=== PATIENT | female | born 1940 | race Caucasian/White ===

== ENCOUNTER 2018-09-05 05:55 | Observation (INO) | payer OTHER, BC ==
--- NOTE | 2018-08-29 12:14 | RAD REPORT ---
EXAM DESCRIPTION: RAD - Chest Pa And Lat (2 Views) - 08/29/2018 12:04 pm CLINICAL HISTORY: Preop chest, pending shoulder surgery COMPARISON: November 2015 TECHNIQUE: PA and lateral views of the chest were obtained. 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 This is relatively mild and non progressive from 201 6. No superimposed failure, infiltrate or mass. Heart size is normal and central vasculature is wit hin normal limits. No pleural effusion or pneumothorax seen. No acute bony finding noted. No aorti c abnormality. IMPRESSION: No acute cardiopulmonary process. Mild interstitial fibrotic pattern is stable from 201 6.
[2018-08-29 12:21] LABS: Absolute Lymphocytes (CBC) 2.1 K/uL (0.7-4.9); Absolute Monocytes 0.9 K/uL (0.1-1.3); Absolute Neutrophil 7.5 K/uL (1.8-8.0); Basophils % 0.7 % (0-1.3); Eosinophils % 3.6 % (0-4.4); Hematocrit 38.3 % (36.0-45.0); Lymphocytes % 18.8 % (15.3-44.8); MCH 28.8 pg (27.0-35.0); MCV 85.7 fL (80-100); Monocytes % 8.2 % (3.3-12.3); RBC Red Blood Cell Count 4.47 M/uL (3.86-4.86)
[2018-08-29 12:27] LABS: Protime INR 1.01
[2018-08-29 13:30] LABS: Urine Appearance TURBID; Urine Bilirubin NEGATIVE (NEG); Urine Blood 2+ (NEG); Urine Color YELLOW; Urine Glucose NEGATIVE (NEG); Urine Protein TRACE (NEG); Urine Specific Gravity 1.015 (1.005-1.030); Urine Urobilinogen 0.2 mg/dL (0.2-1.0); Urine pH 5.5 (5.0-7.0)
[2018-08-29 13:36] LABS: Urine Microscopic Reflex ORDER UMIC
[2018-08-29 13:43] LABS: Urine Bacteria >50 /HPF (<20)
[2018-08-29 13:44] LABS: Urine Culture Reflex Order REFLEXED
--- NOTE | 2018-08-29 14:29 | EKG ---
Test Date: 2018-08-29 Test Time: 12:11:05 Claims Auditor: KEHINDE MEASUREMENT RESULTS: Intervals: Rate: 71 HI: 162 QRSD: 130 QT: 412 QTc: 447 Emmons: P: 71 HI: 162 QRS: -41 T: 89 INTERPRETIVE STATEMENTS: Normal sinus rhythm Possible Left atrial enlargement Left axis deviation Left bundle branch block Abnormal ECG Compared to ECG 11/27/2015 10:02:52 No significant changes Electronically Signed On 08-29-18 14:29:10 CDT by Troy Funes
[2018-09-05] MEDS ORDERED: CLINDAMYCIN INJ 600 MG in NA CHLORIDE 0.9% 50 ML IV ONE (06:00)
--- OUTSIDE RECORDS SUMMARY | 2018-09-05 06:02 | XMS REPORT ---
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
--- OUTSIDE RECORDS SUMMARY | 2018-09-05 06:02 | XMS REPORT ---
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 Carole-D 24 [facility] 02135887799 180mg By mouth Active 1 Hour Daily Results No Known Results Summary Purpose eClinicalWorks Submission
--- OUTSIDE RECORDS SUMMARY | 2018-09-05 06:02 | XMS REPORT ---
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
--- OUTSIDE RECORDS SUMMARY | 2018-09-05 06:02 | XMS REPORT ---
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 Assessment Acute pain of right shoulder M25.511 Active Medications Medication Code Code Instructions Start End Status Dosage System Date Date immodium [facility] 54837139948 Oral Active 1 tab Tramadol HCl [facility] 07997858869 50 MG Orally Jul 30Jul Active 1 tablet as every 6 hrs 2017 27, needed 2018 Ellura [facility] 92745760831 200 MG Orally Active as directed Amlodipine [facility] 24655153300 5 MG Oral Active TAKE ONE Besylate (1) TABLET(S) BY MOUTH ONCE A DAY. Carole-D 24 [place] 93247533055 180mg By mouth Active 1 Hour Daily Results No Known Results Summary Purpose eClinicalWorks Submission
--- OUTSIDE RECORDS SUMMARY | 2018-09-05 06:02 | XMS REPORT ---
[...] Medications Results No Known Results Summary Purpose [employer] Submission
--- OUTSIDE RECORDS SUMMARY | 2018-09-05 06:02 | XMS REPORT ---
[...] Medications Results No Known Results Summary Purpose [employer] Submission
[2018-09-05] MEDS ORDERED: Ringers Lactate 1,000 ML IV ONE ×3 (06:21→11:18)
[2018-09-05] MEDS ORDERED: SCOPOLAMINE HYDROBROMIDE PATCH TD ONE (06:47)
[2018-09-05] MEDS ORDERED: ROPLVACAINE HCL 20 ML ONE (07:00)
[2018-09-05] MEDS ORDERED: DEXAMETHASONE 4 MG/ML VIAL ONE (07:00)
[2018-09-05] MEDS ORDERED: FENTANYL CITR 100 MCG/2 ML ONE (07:00)
[2018-09-05] MEDS ORDERED: MIDAZOLAM HCL 2 MG/2 ML INJ ONE ×2 (07:00→07:01)
[2018-09-05] MEDS ORDERED: ROPIVACAINE HCL 0 ML ONE (07:01)
[2018-09-05] MEDS ORDERED: LIDOCAINE 1% MPF 2 ML AMPULE ONE (07:33)
[2018-09-05] MEDS ORDERED: PROPOFOL 200 MG/20 ML VIAL IV ONE (07:33)
[2018-09-05] MEDS ORDERED: ROCURONIUM 50 MG/5 ML VIAL IV ONE (07:42)
[2018-09-05] MEDS ORDERED: EPHEDRINE SULF 50 MG/10 ML SYR ONE (07:59)
[2018-09-05] MEDS ORDERED: ONDANSETRON 4 MG/2 ML VIAL IV PRN (11:06)
[2018-09-05] MEDS ORDERED: DOCUSATE NA 100 MG CAP PO PRN (11:06)
--- NOTE | 2018-09-05 11:06 | P.BOP ---
Preoperative diagnosis: right shoulder osteoarthritis Postoperative diagnosis: same Primary procedure: right total shoulder arthroplasty Secondary procedure: same Front End Software Engineer: NONE,NONE Estimated blood loss: 20 cc Specimen: right humeral head Findings: see dictation Anesthesia: General Complications: None Drain(s): Urinary catheter Implants: size 11 humeral stem, 42 mm humeral head, small glenoid w regen porous post Fluids & blood products: per anesthesia record Transferred to: Recovery Room Condition: Good
[2018-09-05] MEDS ORDERED: MEPERIDINE HCL 25 MG/0.5 ML IV PRN (11:14)
[2018-09-05] MEDS ORDERED: PSEUDOEPHEDRINE PO PRN (11:15)
[2018-09-05] MEDS ORDERED: FEXOFENADINE PO PRN (11:15)
--- NOTE | 2018-09-05 12:27 | RAD REPORT ---
EXAM DESCRIPTION: RAD - Shoulder 1 View - 09/05/2018 12:08 pm CLINICAL HISTORY: Right shoulder surgery FINDINGS: Frontal view of the right shoulder was obtained. Postsurgical changes of a right shoulder arthroplasty is been performed. The prosthesis is in good position. No fracture is noted.
[2018-09-05 12:58] VITALS: BMI 25.3
[2018-09-05] MEDS: HYDROCODONE/APAP 7.5/325 MG TAB PO PRN ×3 (12:59→21:58)
[2018-09-05] MEDS ORDERED: PNEUMOCOCCAL VACCINE 0.5 ML IMVAC ONE (14:00)
[2018-09-05 16:40] LABS: Urine Appearance CLEAR; Urine Bilirubin NEGATIVE (NEG); Urine Blood NEGATIVE (NEG); Urine Color YELLOW; Urine Glucose 1+ (NEG); Urine Protein NEGATIVE (NEG); Urine Specific Gravity 1.015 (1.005-1.030); Urine Urobilinogen 0.2 mg/dL (0.2-1.0)
[2018-09-05 16:43] LABS: Urine Microscopic Reflex ORDER UMIC
[2018-09-05 16:59] LABS: Urine Bacteria <20 /HPF (<20); Urine Culture Reflex Order REFLEXED; Urine Mucus LIGHT /HPF (NONE SEEN); Urine RBC NONE SEEN /HPF (NONE SEEN)
[2018-09-05] MEDS: CLINDAMYCIN INJ 600 MG in NA CHLORIDE 0.9% 50 ML IV SCH (17:12)
[2018-09-05] MEDS ORDERED: ALPRAZOLAM 0.25 MG TABLET PO PRN (22:33)
[2018-09-05 23:38] VITALS: O2SAT 96
--- NOTE | 2018-09-06 01:03 | CON ---
Date of Consultation: 09/05/2018 Reason For Consultation: Medical management. History Of Present Illness: This is an 78-year-old female patient who had right shoulder surgery by Dr. Morton today and consultation was requested by Dr. Morton for medical management after surgery. The patient's surgery was uneventful and after surgery she has not had complication. Her pain is under g ood control. Denies any nausea, vomiting, chest pain, shortness of breath. Her last bowel movement was yesterday. Medications: List reviewed. Review of Systems: Musculoskeletal: Right shoulder pain. All other systems reviewed and negative. Allergies: AMPICILLIN, CARVEDILOL, CITRUS FOOD, IBUPROFEN, AVAPRO, NITROFURANTOIN, SULFA, PALMATINE. Past Medical History: Hypertension, hyperlipidemia, osteopenia, osteoarthritis at multiple sites, le ft bundle branch block, and urinary tract infection. Past Surgical History: Appendectomy, hysterectomy. Social History: Prior history of smoking not at present time. Use of alcohol negative. Family History: Father had coronary artery disease. Mother hypertension. Sister with hypertension. Physical Examination: Vital Signs: Reviewed. General: Awake, alert, oriented, not in distress. HEENT: Head atraumatic, normocephalic. Conjunctivae nonerythematous. Sclerae white. Mouth, no thr ush or edema noted. Ears/Nose, no mass, lesion, discharge noted. Neck: Supple. No JVD, lymph nodes, bruit, thyromegaly noted. Lungs: Bilateral good equal air entry. Clear to auscultation. No rhonchi. No rales. Heart: Normal heart sounds, no murmur or gallop. Abdomen: Soft, bowel sounds normal. No guarding, rigidity, tenderness, mass, hepatosplenomegaly, dis tention, or bruit noted. Extremities: Right upper extremity, surgical dressing present, and immobilizer present. Skin: No rash, ulcer, cellulitis. Lymphatics: No lymph node enlargement in neck, supraclavicular, infraclavicular region. Neuro: No focal neurological deficit. Chest: Unremarkable. External Genitalia: Deferred. Rectal: Deferred. Laboratory Data: White count 11, hemoglobin 12.9, platelets 460, sodium 139, potassium 4, chloride 1 04, bicarb 29, BUN 20, creatinine 0.90, glucose 86. Urinalysis positive for nitrite, esterase 3+, bacteria more than 50 wbc's TNTC. Urine culture grew E . coli and Morganella. Impression: 1.Hypertension. 2.Urinary tract infection. 3.Hyperlipidemia. 4.Osteoarthritis, multiple sites. 5.Osteopenia. Plan: The patient was admitted after surgery, and I have seen her this evening. We will go ahead an d continue her home medications per order. She is requesting something to help in future. We will o rder medication for that. Her pain is well controlled. SCDs to be continued for DVT prophylaxis per order, and I will see her tomorrow for followup. If she needs her antihypertensive medication which is amlodipine, we will order for her. Otherwise she is expected to go home tomorrow. I will see he r in the morning. Thank you were much for allowing me to participate in her care. The patient takes Levaquin which was prescribed for her urinary tract infection over the weekend and will continue that. YINA/SOPHIA Voice ID: [id number] Report ID: [id number]
[2018-09-06] MEDS: HYDROCODONE/APAP 7.5/325 MG TAB PO PRN ×2 (02:09→14:17)
[2018-09-06] MEDS: CLINDAMYCIN INJ 600 MG in NA CHLORIDE 0.9% 50 ML IV SCH ×2 (02:09→08:24)
[2018-09-06 05:22] LABS: Absolute Lymphocytes (CBC) 1.3 K/uL (0.7-4.9); Absolute Monocytes 1.4 K/uL (0.1-1.3); Absolute Neutrophil 7.5 K/uL (1.8-8.0); Basophils % 0.2 % (0-1.3); Eosinophils % 0.2 % (0-4.4); Hematocrit 29.7 % (36.0-45.0); Lymphocytes % 12.8 % (15.3-44.8); MCH 28.5 pg (27.0-35.0); MCV 85.6 fL (80-100); MPV 8.6 fL (7.6-11.3); Monocytes % 13.3 % (3.3-12.3); RBC Red Blood Cell Count 3.47 M/uL (3.86-4.86)
[2018-09-06 05:31] LABS: Potassium 4.3 mmol/L (3.5-5.1)
[2018-09-06] MEDS ORDERED: TRAMADOL HCL 50 MG TAB PO PRN (07:54)
--- NOTE | 2018-09-06 08:00 | P.PN ---
Subjective Date of Service: 09/06/18 Chief Complaint: s/p right total shoulder replacement reports block wore off overnight with increased pain. Nausea controlled with scopolamine patch. Physical Examination - Vital Signs Temperature: 97.3 F Blood Pressure: 110/61 Pulse: 72 Respirations: 18 Pulse Ox (%): 94 - Physical Exam General: Alert, In no apparent distress Musculoskeletal: Other (RUE: dressing c/d/i; +EPL/FPL/intrinsics; 2+ radial pulse; sensation grossly intact distally) - Studies Laboratory Data (last 24 hrs) 09/06/18 04:47: Sodium 135 L, Potassium 4.3, BUN 15, Creatinine 0.80, Glucose 117 H 09/06/18 04:47: WBC 10.2, Hgb 9.9 L, Hct 29.7 L, Plt Count 366 D 09/05/18 11:37: Hgb 11.3 L, Hct 34.0 L Assessment And Plan - Plan Alycia is an 78 yo female s/p R total shoulder arthroplasty POD#1 -d/c lucie this AM -mobilize with PT this AM -ok to d/c home if can ambulate safely with PT -will follow next week for wound check and dressing change
[2018-09-06] MEDS ORDERED: PNEUMOCOCCAL VACCINE 0.5 ML IMVAC ONE (09:00)
[2018-09-06] MEDS ORDERED: AMLODIPINE 5 MG TAB PO SCH (09:00)
[2018-09-06 12:35] VITALS: BP 150/67; TEMP 98.1
--- NOTE | 2018-09-07 02:01 | PN ---
Date of Progress Note: 09/06/2018 Subjective: The patient was seen this morning for followup. No new complaints or problems reported by the patient. Lying in bed, not in distress. She was complaining of some pain in her right should er and takes pain medication as ordered by Dr. Morton. Physical Examination: Vital Signs: Reviewed. HEENT: Examination unremarkable. Lungs: Clear to auscultation. Heart: Sounds normal. Abdomen: Soft. Bowel sounds normal. No guarding, rigidity, tenderness, or distention. Extremities: No leg edema. Laboratory Data: White count 10.2, hemoglobin 9.9, platelets 366. Sodium 135, potassium 4.3, chlori de 101, bicarb 27, BUN 15, creatinine 0.80, glucose 117. Impression: 1.Hypertension. 2.Urinary tract infection. Plan: We will continue Levaquin. The patient is medically stable for discharge to go home. She has her Levaquin prescription at home and she will continue that. The patient was instructed to get yumiko k on her usual home medication as she was taking before. She was also advised to make sure to take s tool softener daily and if she needs any laxatives, then she can use mqik-ubf-pwueieu milk of magnesi a or MiraLAX, and all those details were discussed with her today. YINA/MODL Voice ID: [id number] Report ID: [id number]
--- NOTE | 2018-09-07 08:16 | OP ---
Date of Procedure: 09/05/2018 Surgeon: Jean-Paul Morton MD Preoperative Diagnosis: Right shoulder osteoarthritis. Postoperative Diagnosis: Right shoulder osteoarthritis. Procedure Performed: Right total shoulder arthroplasty. Anesthesia: General endotracheal. Fluids: Per Anesthesia record. Ebl: 50 cc. Complications: None. Implants: 1. A size 11 Biomet mini humeral stem. 2. A 42 x 18 mm humeral head. 3. Small glenoid with Regen porous post. Complications: None. Indication For Procedure: Alycia is an 78-year-old female who presented to my clinic with signs, symptoms, x-ray findings consistent with severe degenerative arthritis of her glenohumeral joint. She had significant loss of motion, pain affecting her ADLs and she had failed conservative treatment measures. I discussed with the patient at length risks and benefits associated with operative and nonoperative treatment. She expressed understanding and elected to proceed with operative treatment. Description Of Procedure: After informed consent was obtained, the patient was identified in the preoperative holding area. The right upper extremity was marked. The patient underwent an interscalene block to her right upper extremity performed by Anesthesia. She was then taken back to the operating room, transferred to the operating table in supine fashion, placed under general endotracheal anesthesia. She was then placed in a beach chair position with her extremities well padded. The right upper extremity was then prepped and draped in usual sterile fashion. A time-out was initiated. The correct patient and procedure were confirmed and identified. The patient had received her preoperative prophylactic antibiotics preoperatively. The patient was noted to have significant loss of motion in both forward flexion and abduction with motion less than 80 degrees and then limited external rotation. An Ioban drape was used to cover the shoulder prior to the incision. A standard deltopectoral incision was made from the distal clavicle near the pack insertion on the right upper extremity. Dissection was then taken down to the deltopectoral fascia, which was incised. The cephalic vein was identified. Any bleeders were tied off with the silk ties. Deltopectoral interval was then made and a self-retaining retractor was placed. A conjoined tendon was then found at the base of the coracoid process and the retractor was placed on the lateral side of the conjoined tendon, and the axillary nerve was protected. Axillary nerve was also protected throughout the case. The biceps tendon was identified and a tenodesis was performed by suturing the biceps tendon and surrounding soft tissue using a #1 Vicryl. The remaining biceps tendon was excised. It was noted that the patient had already sustained a prior auto- rupture of the biceps tendon and it was not attached into the superior labrum. Next, a 1 cm medial to the biceps tendon, the subscapularis was identified and was released from the rotator interval inferiorly along with the capsule. A #5 Ethibond sutures were placed in the superior and inferior aspects of the subscapularis tendon and it was elevated off the anterior aspect of the humerus and off the glenoid. An anterior-inferior capsulectomy was performed again protecting the axillary nerve at all times. Next, attention was taken to the proximal humerus, which was dislocated by external rotating and extending the shoulder just posterior to the bicipital groove. An entry reamer was placed down the humeral shaft, followed by reamers to a size 11 mm reamer. Once that was completed, a humeral head resection guide was placed over the reamer with a 30-degree retroversion selected. The cutting guide was placed on the proximal humerus. The reamer was then removed and the humeral head was then resected. There was a significant amount of wear on the humeral head and the resection size was relatively thin as the patient had prolonged history of osteoarthritis with wear of the humeral head just superior to the supraspinatus insertion. Inferior humeral osteophytes were then removed carefully using osteotome and rongeur. Next, broaches were then broached in sequential fashion to a size 11 mm broach. There was good overall fit. A cap was then placed. Next, attention was taken to the glenoid. Batman and Tolu retractors were then placed. The labrum was then removed using Bovie electrocautery. The quadrants were then marked on the glenoid surface using Bovie electrocautery. The central pin was then placed, followed by reaming of the articular surface. A small glenoid was selected. The central post was then drilled followed by placement of the drilling of the 3 pegs superiorly, anteriorly and posteriorly. A trial glenoid was then placed and there was good fit. Next, the final glenoid was placed after irrigation of the shoulder joint with pulse lavage was completed and cement was placed within the 3 outer holes and on the back of the glenoid implant. It was held in place until cement was hardened. The remaining cement was then removed using a Emden elevator. Next, humeral head was trialed and a size 42 x 18 mm humeral head was selected with a proper offset being chosen for best fit. The humeral head was reduced. There was some initial tightness noted with the humeral head as it was reduced. The broach handle was then replaced and the humeral stem was then malleted further into the humeral shaft. Calcar planer was then placed and the humeral head was replaced and the shoulder was reduced and there was noted to be improved fit of the humeral head within once reduced. There was 50% translation posteriorly and anteriorly. The patient was able to bring the shoulder forward flexion near 130 degrees with full external and internal rotation. Once the proper fit was confirmed, final humeral stem and head were placed. Again, the shoulder was placed through range of motion and found to be stable and good fit with good translation on the glenoid surface. The wound was then again irrigated thoroughly with normal saline pulse lavage. The subscapularis was repaired using #5 Ethibond as well as none #1 Vicryl to reinforce the repair. The fascia was then approximated using a #1 Vicryl. Subcutaneous tissue was approximated using a 2-0 Vicryl. Skin was approximated using a 3-0 nylon in horizontal mattress fashion. Sterile dressings were applied. The patient was placed in a shoulder immobilizer, awakened, and transferred to PACU in stable condition. Postoperative Plan: She will be admitted for observation for PT and for pain control. She will be discharged in the morning if she is able to mobilize safely. She will follow up in my clinic next week for wound check. She will begin physical therapy at approximately 4 weeks postoperatively to work on gentle hkjpi-dy-ctmqib exercises. LUKASZ/SOPHIA Voice ID: [id number] Report ID: [id number] TIKI
== END 2018-09-06 14:31 | disposition home or self-care (01) ==
LOC: OR 05:55 → INTOOBSV 11:00 → 2ND 11:00
PROVIDERS: ADMIT Orthopaedic Surgery Sports Medicine; ATTEND Orthopaedic Surgery Sports Medicine
PROC: 0RRJ0JZ Replacement of Right Shoulder Joint with Synthetic Substitute, Open Approach (ICD-10-PCS; principal; 2018-09-05 07:30)
DX: M19.011 Primary osteoarthritis, right shoulder (principal); N39.0 Urinary tract infection, site not specified; B96.20 Unspecified Escherichia coli [E. coli] as the cause of diseases classified elsewhere; I10 Essential (primary) hypertension; E78.00 Pure hypercholesterolemia, unspecified; Z23 Encounter for immunization; Z88.0 Allergy status to penicillin; Z88.2 Allergy status to sulfonamides
CPT/HCPCS: 23472; 36415 ×2; 71046; 73020; 80048 ×2; 85014; 85018; 85025 ×2; 85610; 85730; 87077 ×2; 87086; 87088 ×2; 87186 ×2; 88305; 88311; 90670; 93005; 97116; 97163; G0009 ×2; G0378; G0379; J2001; J2175; J2250 ×2; J2795; J3010; 81003; 81015; 88307

== ENCOUNTER 2020-04-15 08:53 | Observation (INO) | payer OTHER, BC ==
[2020-04-08 12:20] LABS: Absolute Lymphocytes (CBC) 2.2 K/uL (0.7-4.9); Basophils % 0.8 % (0-1.3); Hematocrit 37.8 % (36.0-45.0); Lymphocytes % 27.4 % (15.3-44.8); MPV 8.6 fL (7.6-11.3); RBC Red Blood Cell Count 4.44 M/uL (3.86-4.86)
[2020-04-08 12:26] LABS: Protime INR 0.95
[2020-04-08 12:45] LABS: Albumin 3.8 g/dL (3.4-5.0); Bilirubin Total 0.3 mg/dL (0.2-1.0); Potassium 4.1 mmol/L (3.5-5.1)
[2020-04-15] MEDS ORDERED: CLINDAMYCIN INJ 600 MG in NA CHLORIDE 0.9% 50 ML IV ONE (09:00)
[2020-04-15] MEDS ORDERED: Ringers Lactate 1,000 ML IV ONE ×2 (09:06→11:59)
[2020-04-15] MEDS ORDERED: dexAMETHasone 10 MG/ML VIAL ONE (09:33)
[2020-04-15] MEDS ORDERED: ROPLVACAINE HCL 20 ML ONE (09:33)
--- OUTSIDE RECORDS SUMMARY | 2020-04-15 09:39 | XMS REPORT ---
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
--- OUTSIDE RECORDS SUMMARY | 2020-04-15 09:39 | XMS REPORT | Continuity of Care Document ---
:1940 Author Organization [facility] t Address [address] [place] [address] Care Team Providers Name Role Phone Unavailable Unavailable Unavailable Problems Condition Condition Condition Status Onset Resolution Last Treating Co mments Source Name Details Category Date Date Treatment Clinician Date Osteoarthr Osteoarthr Problem Active [facility] - [facility] right Memoria patellofem patellofem l oral joint oral joint [facility] Primary Primary Problem Active [facility] osteoarthr osteoarthr Gloria kes - itis of [facility] right right l shoulder shoulder Outpat i ent Clinics Pain, Pain, Problem Active [facility] - knee, knee, [facility] right right l [facility] Osteoarthr Osteoarthr Problem Active [facility] - left left Memoria patellofem patellofem l oral joint oral joint [facility] Primary Primary Diagnosis Active [facility] osteoarthr osteoarthr Gloria kes - itis of [facility] left left l shoulder shoulder Outpat i ent Clinics Acute pain Acute pain Diagnosis Active [facility] left of left [facility] - shoulder shoulder Memori a l [facility]ics Allergies, Adverse Reactions, Alerts Allergy Allergy Status Severity Reaction(s) Onset Inactive Treating Comm ents Source Name Type Date Date Clinician Nitrofur Adverse Active Info Not [facility] Carvedil Adverse Active Info Not [facility] ol Reaction Available [facility] [place] Adverse Active Info Not [facility] Advil Adverse Active Info Not [facility] Reaction Available [facility] [place] Adverse Active Info Not [facility] Sodium Reaction Available [facility] Medications Ordered Filled Start Stop Current Ordering Indication Dosage Frequency Signature Comments Components Source Medication Medication Date Date Medication? Clinician (SIG) Name Name Alina Fuller Yes Jean-Paul as [facility]ics immodium immodium Yes Jean-Paul [address] [facility] Amlodipine Amlodipine Yes Jean-Paul TAKE ONE [facility] Besylate Besylate [facility] (1) [facility] - TABLET(S) Memoria BY MOUTH l ONCE A Outpati DAY. ent Clinics Carole-D Carole-D Yes Jean-Paul [address] 24 Hour 24 Hour [facility] Ibuprofen Ibuprofen Yes Jean-Paul [address] [facility] with food [facility] - or milk as Memoria needed l [facility] Clinics Hydrocodone Hydrocodone Yes Jean-Paul (Schedule [facility] -Acetaminop -Acetaminop [facility] II Drug) [facility] - hen hen TAKE ONE Memoria (1) l TABLET(S) Outpati BY MOUTH ent EVERY SIX Clinics HOURS NEEDED FOR PAIN. Clindamycin Clindamycin Yes Jean-Paul TAKE FOUR [facility] HCl HCl [facility] (4) [facility] - CAPSULE(S) Memoria BY MOUTH l ONE HOUR Outpati PRIOR TO ent DENTAL Clinics APPOINTMEN T. Tramadol Tramadol Yes Jean-Paul (Schedule [facility] HCl HCl [facility] IV Drug) [facility] - TAKE ONE Memoria (1) l TABLET(S) Outpati BY MOUTH ent EVERY SIX Clinics HOURS NEEDED FOR PAIN. Procedures This patient has no known procedures. Encounters Start End Encounter Admission Attending Care Care Encounter Source Date/Time Date/Time Type Type Clinicians Facility Department ID 2020-03-31 2020-03-31 Outpatient Troy Simmon[facility] [id number] [facility] [address] 11:15:00 11:15:00 t [facility] Clinics 2020-01-28 2020-01-28 Outpatient [place] [id number] [facility] [address] 10:38:00 10:38:00 t [facility] ent Clinics 2020-01-13 2020-01-13 Outpatient Troy Simmonst [id number] [facility] [address] 09:30:00 09:30:00 t [facility] ent Clinics 2019-12-10 2019-12-10 [facility] [id number] 11:19:00 11:19:00 t [facility] 2019-12-10 2019-12-10 [facility] [id number] [address] 10:00:00 10:00:00 t [facility] 2019-10-29 2019-10-29 [facility] [id number] [address] 10:00:00 10:00:00 t [facility] 2019-08-29 2019-08-29 [facility] [id number] [address] 08:00:00 08:00:00 t [facility] 2019-02-26 2019-02-26 [facility] [id number] [address] 09:00:00 09:00:00 t [facility] 2019-02-12 2019-02-12 [facility] [id number] [address] 08:30:00 08:30:00 t [facility] 2019-02-04 2019-02-04 [facility] [id number] [address] 13[facility]30:00 13:30:00 t [facility] 2019-01-24 2019-01-24 [facility] [id number] 09:30:00 09:30:00 t [facility] ent Clinics 2018-11-29 2018-11-29 [facility] [id number] [address] 09:00:00 09:00:00 t [facility] 2018-10-18 2018-10-18 [facility] [id number] 08:30:00 08:30:00 t Bone [facility] 2018-08-29 2018-08-29 [facility] [id number] [address] 14:32:00 14:32:00 t [facility] 2018-08-29 2018-08-29 [facility] [id number] [address] 11:05:00 11:05:00 t [facility] 2018-07-30 2018-07-30 [facility] [id number] [address] 10:30:00 10:30:00 t [facility] 2018-07-04 2018-07-04 [facility] [id number] 22:01:00 22:01:00 t Bone [facility] 2018-07-04 2018-07-04 [facility] [id number] 08:35:00 08:35:00 t Bone [facility] 2018-06-25 2018-06-25 [facility] [id number] 09:30:00 09:30:00 t Bone [facility] Results This patient has no known results.
--- OUTSIDE RECORDS SUMMARY | 2020-04-15 09:39 | XMS REPORT ---
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 Clindamycin HCl ND 04181800014 150 MG Oral Active TAKE FOUR (4) CAPSULE(S) BY MOUTH ONE HOUR PRIOR TO DENTAL APPOINTMENT . Carole-D 24 ND 57808785937 180mg By mouth Active 1 Hour Daily Ellura ND 84994295060 200 MG Orally Active as dir ected Tramadol HCl ND 75992783586 50 MG Oral Active (Fior edule IV Drug) TAKE ONE (1) TABLET(S) BY MOUTH EVERY SIX HOURS NEEDED FOR PAIN. Ibuprofen ND 60582809671 200 MG Orally Active 1 ta blet Three times a with food day or milk as needed Amlodipine ND 69138574505 5 MG Oral Active TAKE ON E Besylate (1) TABLET(S) BY MOUTH ONCE A DAY. immodium ND 04402605643 Oral Active 1 tab Results No Known Results Summary Purpose eClinicalWorks Submission
--- OUTSIDE RECORDS SUMMARY | 2020-04-15 09:39 | XMS REPORT ---
:1940 Author Organization e[employer] Care Team Providers Name Role Phone Praveen Jean-Paul Provider Role Unavailable Allergies, Adverse Reactions, Alerts [...] End Status Dosage System Date Date immodium ND 21439339784 Oral Active 1 tab Carole-D 24 ND 29120013794 180mg By mouth Active 1 Hour Daily Levofloxacin ND 12571051290 500 MG Oral Active THERESE E ONE (1) TABLET(S) BY MOUTH ONCE A DAY. Clindamycin HCl [facility] [address]-68 Active no t defined Ellura ND 39866937908 200 MG Orally Active as directed Tramadol HCl ND 73273112661 50 MG Orally Oct 18, Active 1 tablet every 6 hrs 2017 as needed Ibuprofen ND 60065844283 200 MG Orally Active 1 ta blet Three times a with food day or milk as needed Amlodipine ND 74445942527 5 MG Oral Active TAKE ON E Besylate (1) TABLET(S) BY MOUTH ONCE A DAY. Results No Known Results Summary Purpose eClinicalWorks Submission
[2020-04-15] MEDS ORDERED: FENTANYL CITR 100 MCG/2 ML ONE (10:01)
[2020-04-15] MEDS ORDERED: MIDAZOLAM HCL 2 MG/2 ML INJ ONE (10:01)
[2020-04-15] MEDS ORDERED: LIDOCAINE 2% MPF 5 ML VIAL ONE (10:12)
[2020-04-15] MEDS ORDERED: propofoL 200 MG/20 ML VIAL IV ONE (10:12)
[2020-04-15] MEDS ORDERED: ROCURONIUM 50 MG/5 ML VIAL IV ONE (10:13)
[2020-04-15] MEDS ORDERED: Phenylephrine HCl 10 MG/ML 1 ML VIAL ONE (10:16)
[2020-04-15] MEDS ORDERED: TRANEXAMIC ACID 1,000 MG in NA CHLORIDE 0.9% 50 ML IV SCH (11:30)
[2020-04-15] MEDS ORDERED: ONDANSETRON 4 MG/2 ML VIAL ONE (11:59)
[2020-04-15] MEDS ORDERED: KETOROLAC 30 MG/ML INJ ONE (11:59)
[2020-04-15] MEDS ORDERED: dexAMETHasone 4 MG/ML VIAL ONE (11:59)
[2020-04-15] MEDS ORDERED: GLYCOPYRROLATE 0.2 MG/ML SYR ONE ×2 (13:39→13:40)
[2020-04-15] MEDS ORDERED: NEOSTIGMINE 1 MG/ML -5 ML ONE (13:40)
[2020-04-15] MEDS ORDERED: LABETALOL 20 MG/4ML SYRINGE IV ONE (14:08)
[2020-04-15] MEDS ORDERED: DOCUSATE NA 100 MG CAP PO PRN (14:19)
[2020-04-15] MEDS ORDERED: ONDANSETRON 4 MG/2 ML VIAL IV PRN (14:19)
[2020-04-15] MEDS ORDERED: MORPHINE 4 MG/ML SYR IV PRN (14:19)
[2020-04-15] MEDS ORDERED: ZOLPIDEM TARTRATE 5 MG TABLET PO PRN (14:19)
--- NOTE | 2020-04-15 14:19 | P.BOP ---
Preoperative diagnosis: left shoulder osteoarthritis Postoperative diagnosis: same Primary procedure: left total shoulder arthroplasty Institutional Custodian: NONE,NONE Estimated blood loss: 75 cc Specimen: left proximal humerus bone remnants Findings: see dictation Anesthesia: General Complications: None Drain(s): Urinary catheter Implants: Biomet small 4mm glenoid w/ porous post 11x83 mini humeral stem, 42x18 head Fluids & blood products: per anesthesia record Transferred to: Recovery Room Condition: Good
--- NOTE | 2020-04-15 15:07 | RAD REPORT ---
EXAM DESCRIPTION: RAD - Shoulder 1 View - 04/15/2020 2:46 pm FINDINGS: Single AP projection of the left shoulder obtained as it postoperative portable examinatio n. Skin mckay are in place. Proximal left humerus prosthesis has been placed. No suspicious or unexpec kd finding regarding the implant or proximal humerus. Postsurgical changes and degenerative changes are present to the bony glenoid. . No AC joint abnormal ity.
[2020-04-15] MEDS: HYDROCODONE/APAP 7.5/325 MG TAB PO PRN ×2 (16:22→20:53)
[2020-04-15 16:40] VITALS: BMI 26.5
[2020-04-15] MEDS: CLINDAMYCIN INJ 600 MG in NA CHLORIDE 0.9% 50 ML IV SCH (16:53)
[2020-04-15] MEDS: ASPIRIN 325 MG TAB PO SCH (20:53)
--- NOTE | 2020-04-15 21:10 | P.OP ---
Preoperative diagnosis: left shoulder osteoarthritis Postoperative diagnosis: same Primary procedure: left total shoulder arthroplasty Anesthesia: general endotracheal Estimated blood loss: 75 cc Specimen: left humeral head Findings: see dictation Operative Technique: Indication For Procedure: Alycia is an 79-year-old female who presented to my clinic with signs, symptoms, x-ray findings consistent with severe degenerative arthritis of her left glenohumeral joint. She had significant loss of motion, pain affecting her ADLs and she had failed conservative treatment measures. I discussed with the patient at length risks and benefits associated with operative and nonoperative treatment. She expressed understanding and elected to proceed with operative treatment. Description Of Procedure: After informed consent was obtained, the patient was identified in the preoperative holding area. The left upper extremity was marked. The patient underwent an interscalene block to her right upper extremity performed by Anesthesia. She was then taken back to the operating room, transferred to the operating table in supine fashion, placed under general endotracheal anesthesia. She was then placed in a beach chair position with her extremities well padded. The left upper extremity was then prepped and draped in usual sterile fashion. A time-out was initiated. The correct patient and procedure were confirmed and identified. The patient had received her preoperative prophylactic antibiotics preoperatively. The patient was noted to have significant loss of motion in both forward flexion and abduction with motion less than 80 degrees and then limited external rotation. An ioban drape was used to cover the shoulder prior to the incision. A standard deltopectoral incision was made from the distal clavicle near the pec insertion on the left upper extremity. Dissection was then taken down to the deltopectoral fascia, which was incised. The cephalic vein was identified. Deltopectoral interval was then made and a self-retaining retractor was placed. A conjoined tendon was then found at the base of the coracoid process and the retractor was placed on the lateral side of the conjoined tendon, and the axillary nerve was protected. Axillary nerve was also protected throughout the case. It was noted that the patient had already sustained a prior auto-rupture of the biceps tendon and it was not attached into the superior labrum. Next, a 1 cm medial to the biceps tendon, the subscapularis was identified and was released from the rotator inter elza inferiorly along with the capsule. A #5 Ethibond sutures were placed in the superior and inferior aspects of the subscapularis tendon and it was elevated off the anterior aspect of the humerus and off the glenoid. An anterior- inferior capsulectomy was performed again protecting the axillary nerve at all times. Next, attention was taken to the proximal humerus, which was dislocated by external rotating and extending the shoulder just posterior to the bicipital groove. An entry reamer was placed down the humeral shaft, followed by reamers to a size 11 mm reamer. Once that was completed, a humeral head resection guide was placed over the reamer with a 30-degree retroversion selected. The cutting guide was placed on the proximal humerus. The reamer was then removed and the humeral head was then resected. There was a significant amount of wear on the humeral head and the resection size was relatively thin as the patient had prolonged history of osteoarthritis with wear of the humeral head just superior to the supraspinatus insertion. Inferior humeral osteophytes were then removed carefully using osteotome and rongeur. Next, broaches were then broached in sequential fashion to a size 11 mm broach. There was good overall fit. A cap was then placed. Next, attention was taken to the glenoid. Batman and Tolu retractors were then placed. The labrum was then removed using Bovie electrocautery. The quadrants were then marked on the glenoid surface using Bovie electrocautery. The central pin was then placed, followed by reaming of the articular surface. A small glenoid was selected. The central post was then drilled followed by placement of the drilling of the 3 pegs superiorly, anteriorly and posteriorly. A trial glenoid was then placed and there was good fit. Next, the final glenoid was placed after irrigation of the shoulder joint with pulse lavage was completed and cement was placed within the 3 outer holes and on the back of the glenoid implant. It was held in place until cement was hardened. The remaining cement was then removed using a [place] elevator. Next, humeral head was trialed and a size 42 x 18 mm humeral head was selected with a proper offset being chosen for best fit. The humeral head was reduced. There was 50% translation posteriorly and anteriorly. The patient was able to bring the shoulder forward flexion near 120 degrees. Once the proper fit was confirmed, final humeral stem and head were placed. Again, the shoulder was placed through range of motion and found to be stable and good fit with good translation on the glenoid surface. The wound was then again irrigated thoroughly with normal saline pulse lavage. The subscapularis was repaired using #5 Ethibond as well as none #1 Vicryl to reinforce the repair. The fascia was then approximated using a #1 Vicryl. Subcutaneous tissue was approximated using a 2-0 Vicryl. Skin was approximated using a 3-0 nylon in horizontal mattress fashion. Sterile dressings were applied. The patient was placed in a shoulder immobilizer, awakened, and transferred to PACU in stable condition. Postoperative Plan: She will be admitted for observation for PT and for pain control. She will be discharged in the morning if she is able to mobilize safely. She will follow up in my clinic next week for wound check. She will begin physical therapy at approximately 4 weeks postoperatively to work on gentle [id number] exercises. Complications: None Drain(s): Urinary catheter Implants: Biomet 11 x 83 mm mini stem, 42 x 18 head, small glenoid with porous post Fluids & blood products: per anesthesia record Transferred to: Recovery Room Condition: Good
[2020-04-16] MEDS: TRAMADOL HCL 50 MG TAB PO PRN ×2 (00:26→08:49)
[2020-04-16] MEDS: CLINDAMYCIN INJ 600 MG in NA CHLORIDE 0.9% 50 ML IV SCH ×2 (00:27→08:00)
[2020-04-16] MEDS: HYDROCODONE/APAP 7.5/325 MG TAB PO PRN ×2 (05:04→10:51)
[2020-04-16 05:47] LABS: Absolute Lymphocytes (CBC) 1.2 K/uL (0.7-4.9); Basophils % 0.3 % (0-1.3); Hematocrit 31.5 % (36.0-45.0); Lymphocytes % 7.8 % (15.3-44.8); MPV 8.8 fL (7.6-11.3); RBC Red Blood Cell Count 3.76 M/uL (3.86-4.86)
[2020-04-16 05:57] LABS: Potassium 4.5 mmol/L (3.5-5.1)
[2020-04-16 08:27] VITALS: O2SAT 98
[2020-04-16] MEDS: ASPIRIN 325 MG TAB PO SCH (08:49)
[2020-04-16] MEDS ORDERED: AMLODIPINE 5 MG TAB PO SCH (09:00)
--- NOTE | 2020-04-16 09:15 | P.DS ---
Admission Date: 04/15/20 Discharge Date: 04/16/20 Disposition: ROUTINE DISCHARGE Discharge Condition: GOOD Reason for Admission: s/p left total shoulder arthroplasty Procedures: Left total shoulder arthroplasty 04/15/2020 Brief History of Present Illness: Alycia is an 79 yo female admitted to the floor for observation after left total shoulder arthroplasty on 04/15/2020 Hospital Course: Alycia underwent left TSA without complication on 04/15/2020. She was admitted to the floor for observation postoperatively and her vitals remained stable while on the floor. She ambulated the evening of surgery and with physical therapy on the day of discharge. She was discharged in stable condition. She will followup in my clinic in 1 week for wound check. Vital Signs/Physical Exam: Temp Pulse Resp BP Pulse Ox 97.3 F 79 18 161/70 H 96 04/16/20 04:00 04/16/20 08:49 04/16/20 08:49 04/16/20 08:49 04/16/20 08:49 Laboratory Data at Discharge: WBC 14.7 K/uL (4.3-10.9) H D 04/16/20 05:06 Hgb 10.6 g/dL (12.0-15.0) L 04/16/20 05:06 Hct 31.5 % (36.0-45.0) L 04/16/20 05:06 Plt Count 391 K/uL (152-406) 04/16/20 05:06 PT 11.2 SECONDS (9.5-12.5) 04/08/20 11:56 INR 0.95 04/08/20 11:56 APTT 34.4 SECONDS (24.3-36.9) 04/08/20 11:56 APTT Cancelled 04/08/20 11:56 Sodium 131 mmol/L (136-145) L 04/16/20 05:06 Potassium 4.5 mmol/L (3.5-5.1) 04/16/20 05:06 BUN 17 mg/dL (7-18) 04/16/20 05:06 Creatinine 0.81 mg/dL (0.55-1.3) 04/16/20 05:06 Glucose 128 mg/dL (74-106) H 04/16/20 05:06 Total Bilirubin 0.3 mg/dL (0.2-1.0) 04/08/20 11:56 AST 18 U/L (15-37) 04/08/20 11:56 ALT 22 U/L (12-78) 04/08/20 11:56 Alkaline Phosphatase 72 U/L (45-117) 04/08/20 11:56 Home Medications: Amlodipine [Norvasc*] 5 mg pe PO DAILY 10/15/14 Cranberry Fruit Extract [Ellura] 200 mg PO DAILY 10/15/14 Acetaminophen [Tylenol*] 325 mg PO Q4H PRN #30 tab 12/26/14 Fexofenadine/Pseudoephedrine [Carole-D 24 Hour Tablet] 1 each PO DAILY PRN 12/26/14 Loperamide [Imodium*] 2 mg PO UD PRN 12/26/14 Ibuprofen 200 mg PO PRN PRN 08/29/18 Pseudoephed HCl [Sudafed*] 30 mg PO PRN PRN 01/22/20 Hydrocodone 7.5/APAP 325 [Tolna 7.5/325 mg*] 1 tab PO Q4H PRN tab 04/16/20 traMADol HCL [Ultram*] 50 mg PO Q6H PRN tab 04/16/20 Patient Discharge Instructions: keep dressing clean, dry, and intact. Take baby aspirin twice daily for one month postop. remain in left shoulder sling Diet: Regular Activity: Non-weight bearing (LUE) Followup: Jean-Paul Morton MD [ACTIVE - CAN ADMIT] - 1 Week
[2020-04-16 09:54] VITALS: BP 161/70; TEMP 97
[2020-04-16] MEDS ORDERED: ONDANSETRON 4 MG (ODT) TAB PO ONE (11:17)
== END 2020-04-16 11:58 | disposition home or self-care (01) ==
LOC: OR 08:53 → 2ND 14:53
PROVIDERS: ADMIT Orthopaedic Surgery Sports Medicine; ATTEND Orthopaedic Surgery Sports Medicine
PROC: 0RRK0JZ Replacement of Left Shoulder Joint with Synthetic Substitute, Open Approach (ICD-10-PCS; principal; 2020-04-15 10:30)
DX: M19.012 Primary osteoarthritis, left shoulder (principal); G89.18 Other acute postprocedural pain; I10 Essential (primary) hypertension; E78.00 Pure hypercholesterolemia, unspecified; Z79.899 Other long term (current) drug therapy
CPT/HCPCS: 36415; 73020; 80048; 80053; 85014; 85018; 85025; 85610; 85730; 88304; 88305; 88311; 97116; 97161; 97530; G0378; G0379; J1100; J2250; J2370; J2405; J2704; J2710; J2795; J3010; J7120